=== PATIENT | female | born 1930 | race Two or more races ===

== ENCOUNTER 2017-02-13 00:23 | Inpatient (IN) | payer MEDICARE, OTHER ==
[~2017-02-13] VITALS: Ht 165.1 cm; Wt 76.2 kg
[2017-02-13] MEDS ORDERED: ALPR0.5T8 PO (00:38)
[2017-02-13] MEDS ORDERED: FURO-152 PO (00:38)
[2017-02-13] MEDS ORDERED: POTA-10 PO (00:38)
[2017-02-13] MEDS ORDERED: TRAM50TA2 PO (00:38)
[2017-02-13] MEDS ORDERED: OMEP20TA5 PO (00:38)
--- NOTE | 2017-02-13 00:55 | NUR ---
Medically cleared by Dr Diaz
--- NOTE | 2017-02-13 01:23 | NUR ---
Transfered to 2nd floor via lien
[2017-02-13] MEDS ORDERED: MAG HYDROX/AL HYDROX/SIMETH 30 ML LIQUID UDC PO PRN (01:45)
[2017-02-13] MEDS ORDERED: MAGNESIUM HYDROXIDE 30 ML LIQUID UDC PO PRN (01:45)
[2017-02-13] MEDS ORDERED: ACETAMINOPHEN 325 MG TABLET PO PRN (01:45)
--- NOTE | 2017-02-13 01:45 | NUR ---
RECEIVED PATIENT FROM ED. NO ACUTE DISTRESS NOTED. 1:1 SITTER. PATIENT IS ONLY ALERT AND ORIENTED X1. SAFETY INITIATED. CALL LIGHT WITHIN REACH. ADMISSION PROTOCOL FOLLOWED. WILL CONTINUE TO MONITOR.
[2017-02-13 04:58] VITALS: BP 157/74
--- NOTE | 2017-02-13 05:55 | NUR ---
ADDENDUM TO ADMISSION NOTE:PT WAS ADMITTED TO THE UNIT,ON STATUS 72 HR HOLD FOR GD-PT WAS FOUND WANDERING BY NEIGHBORS AND WERE BIB PARAMEDICS,HAS BEEN MORE CONFUSED AND THINKING THAT SHE IS IN A HOUSE,RATHER THAN HOSPITAL.
--- NOTE | 2017-02-13 06:32 | NUR ---
NO CHANGES T/O SHIFT. SITTER AT BEDSIDE. PATIENT DID NOT HAVE ANY HOURS OF SLEEP. SAFETY AND COMFORT MEASURES MAINTAINED T/O SHIFT. ALL NEEDS MET.
--- NOTE | 2017-02-13 08:00 | NUR ---
RECEIVED PATIENT IN HER ROOM WITH HER SITTER ASSISTING HER WITH ADLS PATIENT IS AWAKE HYPER VOCAL TALKING MOSTLY IN [place] BUT SHE DOES UNDERSTAND AND SPEAKS ARABIC BUT PER THE SITTER SHE IS JUST GOING ON AND ON ABOUT HER FAMILY MEMBERS NOTHING SPECIFIC TALKED FOR A LONG PEROID OF TIME BUT IS COOPERATIVE WILL CONTINUE TO OBSERVE.
[2017-02-13 08:31] VITALS: BP 124/64
[2017-02-13] MEDS: LORAZEPAM 0.5 MG TABLET PO PRN (10:12)
--- NOTE | 2017-02-13 10:15 | NUR ---
GETTING MORE RESTLESS AND ANXIOUS AND AGITATED UNABLE TO REDIRECT MEDICATED WITH AT[facility] ORDERED AND WILL CONTINUE TO OBSERVE AND PROVIDE SAFE AND THERAPEUTIC ENVIRONMENT AT ALL TIMES.
[2017-02-13 11:21] VITALS: BP 148/61
--- NOTE | 2017-02-13 11:30 | NUR ---
DR SUNG HERE TO SEE PATIENT AND AWARE THAT PATIENT HAS BEEN HYPERVOCAL AND RESTLESS AND WAS MEDICATED WITH ATIVAN ORDERED AND SHE CALLED AND SPOKE WITH THE PATIENTS DAUGHTER SUELLEN WITH NEW ORDERS AND NOTED.
[2017-02-13] MEDS: QUETIAPINE FUMARATE 25 MG TABLET PO SCH ×2 (12:18→17:17)
[2017-02-13] MEDS ORDERED: TRAMADOL HCL 50 MG TABLET PO PRN (12:30)
[2017-02-13 12:36] LABS: CARBON DIOXIDE 23 mmol/L (21-32); CHLORIDE 107 mmol/L (98-107); CREATININE 0.8 mg/dL (0.6-1.3); GLUCOSE 100 mg/dL (74-106); POTASSIUM 3.6 mmol/L (3.5-5.1); UREA NITROGEN, BLOOD 14 mg/dL (7-18)
--- NOTE | 2017-02-13 13:23 | NUR ---
CALLED AND INFORMED DR NINA THAT PATIENT IS A SMOKER PER HER DAUGHTER SUELLEN WITH ORDER FOR NICOTINE PATCH AND NOTED.
[2017-02-13] MEDS: NICOTINE 21 MG/24HR PATCH TD SCH (14:23)
--- NOTE | 2017-02-13 14:25 | NUR ---
PATIENT IS RESTING IN BED AND NICOTINE PATCH APPLIED ORDERED WHEN ASKED HOW SHE FEELS STATED THAT SHE FEELS MUCH BETTER.
[2017-02-13 15:26] VITALS: BP 141/55
--- NOTE | 2017-02-13 15:46 | NUR ---
PATIENT IS AN OVER FLOW PSYCH PATIENT,WILL BE TRANSFERED BACK TO THE MENTAL HEALTH UNIT ROOM 140B.CALLED MENTAL HEALTH UNIT AND REPORT GIVEN THE RECEIVING NURSE FOR CONTINUING CARE.PATIENT AWARE.
[2017-02-13] MEDS: ALPRAZOLAM 0.25 MG TABLET PO SCH (17:17)
[2017-02-13 20:00] VITALS: BP 106/54
[2017-02-14 07:30] VITALS: BP 129/69
[2017-02-14] MEDS: QUETIAPINE FUMARATE 25 MG TABLET PO SCH ×2 (08:17→17:23)
[2017-02-14] MEDS: ALPRAZOLAM 0.25 MG TABLET PO SCH ×2 (08:17→17:23)
[2017-02-14] MEDS: NICOTINE 21 MG/24HR PATCH TD SCH (08:17)
[2017-02-14] MEDS: POTASSIUM CHLORIDE 10 MEQ CAPSULE.SA PO SCH (08:17)
[2017-02-14] MEDS: FUROSEMIDE 20 MG TABLET PO SCH (08:17)
[2017-02-14 08:23] LABS: BASOPHILS % (AUTO) 0.7 % (0.0-2.0); EOSINOPHILS # (AUTO) 0.1 K/uL (0.0-0.7); HEMATOCRIT 29.2 % (37-47); HEMOGLOBIN 8.9 G/DL (12.0-16.0); LYMPHOCYTES # (AUTO) 1.7 K/UL (0.8-4.8); LYMPHOCYTES % (AUTO) 26.6 % (20.5-51.5); MEAN CORPUSCULAR HEMOGLOBIN 21.2 UUG (27.0-31.0); MEAN CORPUSCULAR HGB CONC 30 g/dL (32.0-37.0); MEAN CORPUSCULAR VOLUME 69.8 FL (81.0-99.0); MONOCYTES # (AUTO) 0.4 K/UL (0.1-1.30); MONOCYTES % (AUTO) 6.6 % (0.0-11.0); NEUTROPHILS # (AUTO) 4.1 K/UL (1.8-8.9); NEUTROPHILS % (AUTO) 64.1 % (38.5-71.5); PLATELET COUNT (AUTO) 125 K/UL (150-450); RED BLOOD CELL COUNT(AUTO) 4.19 MIL/UL (4.2-5.4); WHITE BLOOD COUNT (AUTO) 6.3 K/UL (4.0-11.2)
[2017-02-14 09:24] LABS: BILIRUBIN,TOTAL 0.4 mg/dL (0.2-1.0); CARBON DIOXIDE 27 mmol/L (21-32); CHLORIDE 109 mmol/L (98-107); CREATININE 0.7 mg/dL (0.6-1.3); GLUCOSE 104 mg/dL (74-106); PHOSPHOROUS 3.8 mg/dL (2.5-4.9); POTASSIUM 3.8 mmol/L (3.5-5.1); UREA NITROGEN, BLOOD 10 mg/dL (7-18)
[2017-02-14 09:25] LABS: ALANINE AMINOTRANSFERASE 25 U/L (14-59); ALKALINE PHOSPHATASE 96 U/L (50-136); ASPARTATE AMINOTRANSFERASE 36 U/L (15-37); MAGNESIUM 1.9 mg/dL (1.8-2.4); TOTAL PROTEIN, SERUM 7.2 g/dL (6.4-8.2)
[2017-02-14 09:45] LABS: LYMPHOCYTES % (MANUAL) 22 % (20-40); MONOCYTES % (MANUAL) 3 % (2-10); NEUTROPHILS % (MANUAL) 75 % (42-75)
[2017-02-14 10:32] LABS: THYROID STIMULATING HORMONE 3.068 mIU/mL (0.358-3.740)
[2017-02-14 16:00] VITALS: BP 132/61
--- NOTE | 2017-02-14 16:01 | NUR ---
Initial discharge instructions: Pt resides at home alone [[address],[address];[phone]].Per pt,she would like to go back home upon discharge.Spoke with pt's daughter,Shasha Miller [phone] who reported the pt will either go back home with 24/7 caregiving or be placed at [facility].SW will speak with pt,family,and MD regarding appropriate discharge plans.SW will form a safe and proper discharge.
[2017-02-14] MEDS: DONEPEZIL 5 MG TABLET PO SCH (20:15)
[2017-02-14 20:27] VITALS: BP 109/59
--- NOTE | 2017-02-14 20:56 | NUR ---
PATIENT RECEIVED IN BED AWAKE, ABLE TO MAKE NEEDS KNOWN. PATIENT DENIES PAIN AT THIS TIME, WILL CONTINUE TO MONITOR. PATIENT IS ALERT ORIENTED X2 CONFUSED, FORGETFUL AT TIMES, PATIENT IS HYPERVERBAL.PATIENT HAS POOR INSIGHT AND POOR JUDGEMENT. NO AGGRESSIVE OR COMBATIVE BEHAVIOR NOTED WILL CONTINUE TO MONITOR AND REDIRECT NEEDED. PATIENT IS EASILY AGITATED, AND EASILY IRRITABLE, HOWEVER IS REDIRECTABLE WILL CONTINUE TO MONITOR. SAFE ENVIRONMENT PROVIDED. BED IN LOWEST POSITION, BED LOCKED, AND BED ALARM ON WHILE IN BED.
[2017-02-14 22:38] VITALS: BP 127/60
[2017-02-15] MEDS: TEMAZEPAM 7.5 MG CAPSULE PO PRN (00:34)
[2017-02-15 07:30] VITALS: BP 131/52
[2017-02-15] MEDS: FUROSEMIDE 20 MG TABLET PO SCH (08:44)
[2017-02-15] MEDS: NICOTINE 21 MG/24HR PATCH TD SCH (08:44)
[2017-02-15] MEDS: QUETIAPINE FUMARATE 25 MG TABLET PO SCH ×2 (08:44→16:57)
[2017-02-15] MEDS: POTASSIUM CHLORIDE 10 MEQ CAPSULE.SA PO SCH (08:44)
[2017-02-15] MEDS: ALPRAZOLAM 0.25 MG TABLET PO SCH ×2 (08:45→16:57)
[2017-02-15 17:03] LABS: *BILIRUBIN,URIN NEGATIVE (NEGATIVE); *BLOOD, URINE NEGATIVE (NEGATIVE); *COLOR,URINE LIGHT YELLOW (YELLOW); *KETONES,URINE NEGATIVE (NEGATIVE); *PROTEIN,URINE NEGATIVE (NEGATIVE); *UROBILINOGEN,URINE 0.2 E.U./dl (NORMAL); LEUKOCYTE ESTERASE ,URINE TRACE (NEGATIVE); NITRITE, URINE NEGATIVE (NEGATIVE); PH,URINE 5.5 (5.0-8.0); UGLUCOSE NEGATIVE (NEGATIVE)
[2017-02-15 17:45] LABS: *CLARITY,URINE SLIGHTLY HAZY (CLEAR)
[2017-02-15 17:46] LABS: BACTERIA,URINE FEW /HPF (NONE SEEN); MUCUS,URINE FEW /LPF (0-FEW); SQUAMOUS EPITHELIAL CELL,UR MODERATE /HPF (NONE SEEN)
[2017-02-15] MEDS: DONEPEZIL 5 MG TABLET PO SCH (20:42)
[2017-02-15 20:59] VITALS: BP 119/59
[2017-02-16 07:30] VITALS: BP 113/53
[2017-02-16] MEDS: POTASSIUM CHLORIDE 10 MEQ CAPSULE.SA PO SCH (08:39)
[2017-02-16] MEDS: NICOTINE 21 MG/24HR PATCH TD SCH (08:39)
[2017-02-16] MEDS: ALPRAZOLAM 0.25 MG TABLET PO SCH ×2 (08:39→20:23)
[2017-02-16] MEDS: FUROSEMIDE 20 MG TABLET PO SCH (08:40)
[2017-02-16] MEDS: QUETIAPINE FUMARATE 25 MG TABLET PO SCH ×2 (08:40→16:22)
[2017-02-16 15:00] VITALS: BP 94/50
[2017-02-16] MEDS: SERTRALINE HCL 50 MG TABLET PO SCH (16:16)
[2017-02-16] MEDS: DONEPEZIL 5 MG TABLET PO SCH (20:23)
[2017-02-16 21:54] VITALS: BP 134/65
--- NOTE | 2017-02-17 06:18 | NUR ---
NO AGGRESSIVE OR COMBATIVE BEHAVIORS DURING SHIFT. SLEPT 8.5 HOURS.
[2017-02-17] MEDS: NICOTINE 21 MG/24HR PATCH TD SCH (08:27)
[2017-02-17 08:28] VITALS: BP 143/70
[2017-02-17] MEDS: FUROSEMIDE 20 MG TABLET PO SCH (08:28)
[2017-02-17] MEDS: QUETIAPINE FUMARATE 25 MG TABLET PO SCH ×2 (08:28→16:24)
[2017-02-17] MEDS: POTASSIUM CHLORIDE 10 MEQ CAPSULE.SA PO SCH (08:28)
[2017-02-17] MEDS: SERTRALINE HCL 50 MG TABLET PO SCH (13:16)
[2017-02-17 17:04] VITALS: BP 132/63
[2017-02-17 20:02] VITALS: BP 135/61
[2017-02-17] MEDS: DONEPEZIL 5 MG TABLET PO SCH (20:08)
[2017-02-17] MEDS: ALPRAZOLAM 0.25 MG TABLET PO SCH (20:08)
[2017-02-17] MEDS: LORAZEPAM 0.5 MG TABLET PO PRN (21:41)
[2017-02-18 07:30] VITALS: BP 117/55
[2017-02-18] MEDS: FUROSEMIDE 20 MG TABLET PO SCH (08:49)
[2017-02-18] MEDS: POTASSIUM CHLORIDE 10 MEQ CAPSULE.SA PO SCH (08:49)
[2017-02-18] MEDS: QUETIAPINE FUMARATE 25 MG TABLET PO SCH ×2 (08:49→17:17)
[2017-02-18] MEDS: NICOTINE 21 MG/24HR PATCH TD SCH (08:49)
[2017-02-18] MEDS: SERTRALINE HCL 50 MG TABLET PO SCH (13:18)
[2017-02-18 15:45] VITALS: BP 104/62
[2017-02-18 20:14] VITALS: BP 128/67
[2017-02-18] MEDS: DONEPEZIL 5 MG TABLET PO SCH (20:25)
[2017-02-18] MEDS: ALPRAZOLAM 0.25 MG TABLET PO SCH (20:25)
[2017-02-19 07:30] VITALS: BP 123/53
[2017-02-19] MEDS ORDERED: NICOTINE 21 MG/24HR PATCH TD SCH (09:00)
[2017-02-19] MEDS: QUETIAPINE FUMARATE 25 MG TABLET PO SCH ×2 (09:06→17:14)
[2017-02-19] MEDS: NICOTINE 14 MG/24HR PATCH TD SCH (09:06)
[2017-02-19] MEDS: FUROSEMIDE 20 MG TABLET PO SCH (09:06)
[2017-02-19] MEDS: POTASSIUM CHLORIDE 10 MEQ CAPSULE.SA PO SCH (09:06)
[2017-02-19 11:10] LABS: BASOPHILS % (AUTO) 0.6 % (0.0-2.0); EOSINOPHILS % (AUTO) 0.6 % (0.0-7.0); HEMATOCRIT 32.2 % (37-47); HEMOGLOBIN 9.7 G/DL (12.0-16.0); LYMPHOCYTES % (AUTO) 27.9 % (20.5-51.5); MEAN CORPUSCULAR HEMOGLOBIN 21.1 UUG (27.0-31.0); MEAN CORPUSCULAR HGB CONC 30 g/dL (32.0-37.0); MONOCYTES # (AUTO) 0.6 K/UL (0.1-1.30); MONOCYTES % (AUTO) 7.8 % (0.0-11.0); NEUTROPHILS # (AUTO) 4.6 K/UL (1.8-8.9); NEUTROPHILS % (AUTO) 63.1 % (38.5-71.5); PLATELET COUNT (AUTO) 160 K/UL (150-450); RED BLOOD CELL COUNT(AUTO) 4.59 MIL/UL (4.2-5.4); WHITE BLOOD COUNT (AUTO) 7.2 K/UL (4.0-11.2)
[2017-02-19] MEDS: SERTRALINE HCL 50 MG TABLET PO SCH (13:01)
[2017-02-19 13:49] LABS: BAND % (MANUAL) 0 % (0-10); BASOPHILS % (MANUAL) 0 % (0-2); EOSINOPHILS % (MANUAL) 2 % (0-8); LYMPHOCYTES % (MANUAL) 28 % (20-40); MONOCYTES % (MANUAL) 5 % (2-10); NEUTROPHILS % (MANUAL) 65 % (42-75)
[2017-02-19 15:33] VITALS: BP 149/67
[2017-02-19 20:10] VITALS: BP 140/64
[2017-02-19] MEDS: DONEPEZIL 5 MG TABLET PO SCH (20:26)
[2017-02-19] MEDS: ALPRAZOLAM 0.25 MG TABLET PO SCH (20:26)
--- NOTE | 2017-02-19 22:00 | NUR ---
received to care, lying in bed, isolative, but pleasant upon approach. compliant with medications and staff direction. spoke with her son, on the phone. as of 2200, she appears to be asleep. no distress noted. will continue to monitor closely.
--- NOTE | 2017-02-20 06:00 | NUR ---
slept 8.0 hours, total. continues to sleep. no distress noted.
[2017-02-20 07:30] VITALS: BP 140/63
[2017-02-20 07:44] LABS: BASOPHILS # (AUTO) 0.1 K/uL (0.0-8.0); BASOPHILS % (AUTO) 1.1 % (0.0-2.0); EOSINOPHILS % (AUTO) 0.9 % (0.0-7.0); HEMATOCRIT 30.1 % (31.2-41.9); HEMOGLOBIN 9.6 g/dL (10.9-14.3); LYMPHOCYTES # (AUTO) 1.7 K/uL (20.0-40.0); LYMPHOCYTES % (AUTO) 29.8 % (20.5-51.5); MEAN CORPUSCULAR HEMOGLOBIN 21.9 uug (24.7-32.8); MEAN CORPUSCULAR HGB CONC 32 g/dL (32.3-35.6); MEAN CORPUSCULAR VOLUME 68.5 fL (75.5-95.3); MONOCYTES # (AUTO) 0.4 K/uL (2.0-10.0); MONOCYTES % (AUTO) 7.2 % (0.0-11.0); NEUTROPHILS # (AUTO) 3.5 K/uL (1.8-8.9); PLATELET COUNT (AUTO) 143 K/uL (179-408); RED BLOOD CELL COUNT(AUTO) 4.39 MIL/uL (3.63-4.92); WHITE BLOOD COUNT (AUTO) 5.7 K/uL (3.8-11.8)
[2017-02-20 08:31] LABS: ALANINE AMINOTRANSFERASE 32 U/L (14-59); ALKALINE PHOSPHATASE 102 U/L (50-136); ASPARTATE AMINOTRANSFERASE 33 U/L (15-37); BILIRUBIN,TOTAL 0.6 mg/dL (0.2-1.0); CARBON DIOXIDE 29 mmol/L (21-32); CHLORIDE 105 mmol/L (98-107); CREATININE 0.9 mg/dL (0.6-1.3); GLUCOSE 117 mg/dL (74-106); MAGNESIUM 1.8 mg/dL (1.8-2.4); PHOSPHOROUS 3.9 mg/dL (2.5-4.9); POTASSIUM 3.9 mmol/L (3.5-5.1); UREA NITROGEN, BLOOD 16 mg/dL (7-18)
[2017-02-20] MEDS: QUETIAPINE FUMARATE 25 MG TABLET PO SCH ×2 (08:45→17:01)
[2017-02-20] MEDS: POTASSIUM CHLORIDE 10 MEQ CAPSULE.SA PO SCH (08:45)
[2017-02-20] MEDS: NICOTINE 14 MG/24HR PATCH TD SCH (08:45)
[2017-02-20] MEDS: FUROSEMIDE 20 MG TABLET PO SCH (08:45)
[2017-02-20 10:08] LABS: *BLOOD, URINE NEGATIVE (NEGATIVE); *CLARITY,URINE SLIGHTLY CLOUDY (CLEAR); *COLOR,URINE YELLOW (YELLOW); *KETONES,URINE 1+ (NEGATIVE); *PROTEIN,URINE TRACE (NEGATIVE); LEUKOCYTE ESTERASE ,URINE 1+ (NEGATIVE); NITRITE, URINE NEGATIVE (NEGATIVE); UGLUCOSE NEGATIVE (NEGATIVE)
[2017-02-20 10:09] LABS: IRON, SERUM 22 ug/dL (50-175)
[2017-02-20 11:12] LABS: *BILIRUBIN,URIN 1+ (NEGATIVE)
[2017-02-20 11:16] LABS: RBC,URINE 0-3 /HPF (0-3)
[2017-02-20 11:17] LABS: BACTERIA,URINE FEW /HPF (NONE SEEN); SQUAMOUS EPITHELIAL CELL,UR MODERATE /HPF (NONE SEEN)
[2017-02-20] MEDS: SERTRALINE HCL 50 MG TABLET PO SCH (13:19)
[2017-02-20] MEDS: FERROUS SULFATE 325 MG TABEC PO SCH ×2 (13:40→20:41)
[2017-02-20] MEDS: CEPHALEXIN MONOHYDRATE 500 MG CAPSULE PO SCH ×2 (13:41→21:33)
[2017-02-20 15:20] VITALS: BP 133/60
[2017-02-20] MEDS: ALPRAZOLAM 0.25 MG TABLET PO SCH (20:41)
[2017-02-20] MEDS: DONEPEZIL 5 MG TABLET PO SCH (20:41)
[2017-02-20 20:44] VITALS: BP 130/72
--- NOTE | 2017-02-20 22:00 | NUR ---
received to care, lying in bed, pleasant, but appeared slightly anxious, believing that a female peer that was agitated, and yelling, was "a man trying to kill me" pt was reassured that she was safe, and she calmed down. she is compliant with medications and staff direction. as of 2199, she appears to be asleep. no distress noted. will continue to monitor closely.
[2017-02-20] MEDS: TEMAZEPAM 7.5 MG CAPSULE PO PRN (23:22)
--- NOTE | 2017-02-20 23:22 | NUR ---
pt is now awake. appears agitated. wants to go to the bathroom, but believes that the toilet is overflowing. she was reassured that this was not true, and was assisted to the bathroom, and given PRN restoril, for insomnia. currently in bed. no distress noted.
--- NOTE | 2017-02-20 23:50 | NUR ---
appears to be asleep.
--- NOTE | 2017-02-21 06:00 | NUR ---
slept 8.5 hours, total. continues to sleep. no distress noted.
[2017-02-21] MEDS: CEPHALEXIN MONOHYDRATE 500 MG CAPSULE PO SCH (06:25)
[2017-02-21 07:30] VITALS: BP 135/65
[2017-02-21] MEDS: NICOTINE 14 MG/24HR PATCH TD SCH (08:40)
[2017-02-21] MEDS: QUETIAPINE FUMARATE 25 MG TABLET PO SCH (08:40)
[2017-02-21] MEDS: FERROUS SULFATE 325 MG TABEC PO SCH (08:42)
[2017-02-21] MEDS: FUROSEMIDE 20 MG TABLET PO SCH (08:42)
[2017-02-21] MEDS: POTASSIUM CHLORIDE 10 MEQ CAPSULE.SA PO SCH (08:43)
--- NOTE | 2017-02-21 10:16 | NUR ---
DC Note: Patient will be discharged to [facility] [[address] [place], [address]; [phone]] via private transportation at 11:00 am. Spoke with patient's daughter, Shasha [phone] who reported she would transport the patient to the facility. Spoke with Grocery Worker, Marlene [phone] at the facility who stated she would accept the patient today. Patient will follow-up with any House Call Doctors [ / fx: [phone]] at the facility. Per Marlene, the patient may have a Geriatric Psychiatric Evaluation ordered by the Job Coach/Job Developer at the facility once there. Patient was also provided with referrals to [facility] [[address] [place] [address]; ], [facility] [[address], [place] [address]; ], [facility] [[address], [place] [address]; ] for outpatient mental health referrals. Patient's prescriptions will be called into [facility] [phone]. A home health order will be faxed to [facility] [phone]. For smoking cessation, patient was referred to [place] 800-LUNGUSA and [employer] [phone].
--- NOTE | 2017-02-21 11:58 | NUR ---
PSYCH RX: CALLED IN PSYCH RX TO [facility] ([phone]), SPOKE WITH ANA (PHARMACIST).
--- NOTE | 2017-02-21 12:30 | NUR ---
Pt stable, calm, cooperative, confused, AOx2. Pt has tangential thought. Pt denies suicidal ideation and contracts for safety inside and outside of the hospital. Pt discharged with all belongings, valuables, medical prescriptions, and exit care. Psych medications where called into pharmacy. Pt was picked up by family member they will be taking her to the [facility].
== END 2017-02-21 12:30 | disposition home health service (06) | DRG 885 ==
LOC: ER 00:31 → EDBD 01:09 → GPSOV 01:09 → GPS 16:27
PROVIDERS: ADMIT Psychiatry & Neurology Psychosomatic Medicine; ATTEND Internal Medicine
DX: F23 Brief psychotic disorder (principal); F02.81 Dementia in other diseases classified elsewhere, unspecified severity, with behavioral disturbance; I11.0 Hypertensive heart disease with heart failure; E44.0 Moderate protein-calorie malnutrition; D69.6 Thrombocytopenia, unspecified; G30.9 Alzheimer's disease, unspecified; F01.51 Vascular dementia, unspecified severity, with behavioral disturbance; F33.0 Major depressive disorder, recurrent, mild; E83.51 Hypocalcemia; N39.0 Urinary tract infection, site not specified; I50.9 Heart failure, unspecified; Z91.5 Personal history of self-harm; K21.9 Gastro-esophageal reflux disease without esophagitis; E66.9 Obesity, unspecified; Z68.30 Body mass index [BMI] 30.0-30.9, adult; Z79.899 Other long term (current) drug therapy; F41.1 Generalized anxiety disorder; R73.03 Prediabetes; F17.210 Nicotine dependence, cigarettes, uncomplicated; Z86.73 Personal history of transient ischemic attack (TIA), and cerebral infarction without residual deficits; I67.2 Cerebral atherosclerosis; D50.9 Iron deficiency anemia, unspecified
CPT/HCPCS: 36415; 70450; 71010; 83550; 83735; 84100; 84443; 85025; 87086; 93005; 97116; 97530; A4663